=== PATIENT | male | born 1955 | race Caucasian/White ===

== ENCOUNTER 2016-10-06 12:16 | Outpatient (CLI) | payer BC, OTHER | END 2016-10-06 12:17 | disposition home or self-care (01) | DX: E78.00 Pure hypercholesterolemia, unspecified (principal) ==

== ENCOUNTER 2018-03-17 07:35 | Outpatient (CLI) | payer OTHER ==
[2018-03-17 10:38] LABS: BILIRUBIN,URINE NEGATIVE (NEGATIVE); GLUCOSE, URINE (UA) NEGATIVE (NEGATIVE); KETONES,URINE (UA) NEGATIVE (NEGATIVE); LEUKOCYTE ESTERASE, URINE TRACE (NEGATIVE); NITRITE,URINE POSITIVE (NEGATIVE); OCCULT BLOOD,URINE TRACE-LYSE (NEGATIVE); PH,URINE 7.5 PH (5.0-7.5); PROTEIN,URINE NEGATIVE (NEGATIVE); UROBILINOGEN,URINE 0.2 (NORMAL) E.U./dL (NORMAL)
[2018-03-17 10:39] LABS: CLARITY,URINE CLEAR (CLEAR)
[2018-03-17 10:54] LABS: ALBUMIN 3.8 g/dL (3.2-5.5); ALBUMIN/GLOBULIN RATIO 1.2 (1.0-2.2); ALKALINE PHOSPHATASE 55 IU/L (42-121); ALT ALANINE AMINOTRANSFERASE 24 IU/L (10-60); AST ASPARTATE AMINOTRANSFERASE 29 IU/L (10-42); BILIRUBIN,TOTAL 1.2 mg/dL (0.2-1.0); BUN - BLOOD UREA NITROGEN 12 mg/dL (6-20); CALCIUM 8.9 mg/dL (8.5-10.3); CARBON DIOXIDE - CO2 28 mmol/L (21-32); CHLORIDE 100 mmol/L (101-111); CHOL/HDL RATIO 3.4 (<5.0); CHOLESTEROL 171 mg/dL; GFR - MDRD 75 (>89); GLUCOSE 100 mg/dL (70-100); HDL CHOLESTEROL 51 mg/dL; LDL CHOLESTEROL,CALCULATED 106 mg/dL; LDL/HDL RATIO 2.1 (<3.6); SODIUM 133 mmol/L (135-145); TOTAL PROTEIN 7.1 g/dL (6.7-8.2); VLDL CHOLESTEROL 14 mg/dL
[2018-03-17 10:55] LABS: BACTERIA,URINE None Seen /HPF (None Seen); RBC,URINE 0-5 /HPF (0-5); SQUAMOUS EPITHELIAL CELL,UR NONE SEEN (<= Few)
== END 2018-03-17 07:36 | disposition home or self-care (01) ==
LOC: LAB.F 07:35
PROVIDERS: ATTEND Family Medicine
DX: E78.00 Pure hypercholesterolemia, unspecified (principal); Z12.5 Encounter for screening for malignant neoplasm of prostate; Z00.00 Encounter for general adult medical examination without abnormal findings; I10 Essential (primary) hypertension
CPT/HCPCS: 36415; 80053; 80061; 81001; 83721; 84153; 87086

== ENCOUNTER 2019-05-10 07:18 | Outpatient (CLI) | payer MEDICARE ==
--- NOTE | 2019-05-11 06:43 | Ultrasound Report ---
Reason: CARDIOVASCULAR DISORDER Procedure Date: 05/10/2019 Accession Number: [id number] / [id number] Procedure: US - Aorta Screening CPT Code: FULL RESULT: EXAM: AORTIC DOPPLER ULTRASOUND EXAM DATE: 05/10/2019 08:03 AM. CLINICAL HISTORY: Cardiovascular disorder. COMPARISON: None. TECHNIQUE: Real-time sonographic imaging of retroperitoneal vascular structures, including color-flow, Doppler flow and spectral analysis was performed by the lithographic retoucher apprentice. Multiple customer assistance representative static images were saved for review. FINDINGS: Aorta: The abdominal aorta was adequately visualized. No evidence for abdominal aortic aneurysm. Aorta: Proximal: Sagittal AP 2.5 x 2.7 cm. Mid: Transverse 1.9 x 2.1 cm. Distal: Transverse 1.5 x 1.7 cm. Caliber: WNL: Yes. Plaque visualized: Yes. Iliacs: Right Iliac: Transverse 1.2 x 1.1 cm. Left Iliac: Transverse 1.0 x 1.1 cm. Iliac Vessels: The visualized proximal common iliac arteries are normal in caliber. Other: None. IMPRESSION: No abdominal aortic aneurysm. RADIA
== END 2019-05-10 07:19 | disposition home or self-care (01) ==
LOC: DI 07:18
PROVIDERS: ATTEND Internal Medicine
DX: Z13.6 Encounter for screening for cardiovascular disorders (principal)
CPT/HCPCS: 76706

== ENCOUNTER 2019-10-03 06:56 | Outpatient (CLI) | payer MEDICARE | END 2019-10-03 06:57 | disposition critical access hospital (66) | LOC: EMS 06:56 | PROVIDERS: ATTEND Surgery | DX: K92.1 Melena (principal); R19.7 Diarrhea, unspecified | CPT/HCPCS: A0425; A0427 ==

== ENCOUNTER 2019-10-03 07:19 | Inpatient (IN) | payer MEDICARE ==
--- NOTE | 2019-10-03 07:28 | ED Physician Documentation ---
PD HPI GI BLEED - Stated complaint Stated Complaint: GI BLEED - Chief complaint Chief Complaint: Abd Pain - History obtained from History obtained from: Patient - History of Present Illness Timing - onset: Last night (had noted some red blood in toilet after BM 3 days ago, but then normal formed stool without blood the last 2 days. Overnight, had cramping lower abd pain followed by loose daksha blood. This occurred several times (6 times per patient) with red blood and clots each time. No persistent pain. No fever. Feeling weak and lightheaded so called EMS. They found him to be orthostatic/low BP.) Timing - details: Abrupt onset, Still present Associated symptoms: BRBPR, Abdominal pain (intermittent cramping), Dizzy. No: Vomiting, Black/tarry stool, Constipation, Loss of appetite, Weight loss Contributing factors: Aspirin use (baby ASA daily). No: Bad food, Recent antibiotics, NSAID use Similar symptoms before: Has not had sx before Review of Systems Constitutional: denies: Fever, Chills, Myalgias Nose: denies: Rhinorrhea / runny nose, Congestion Throat: denies: Sore throat Respiratory: denies: Cough GI: reports: Bloody / black stool. denies: Abdominal Swelling, Nausea, Vomiting, Constipation, Diarrhea : denies: Dysuria, Frequency Neurologic: reports: Generalized weakness. denies: Focal weakness, Numbness Endocrine: denies: Weight loss, Easy bruising / bleeding Immunocompromised: denies: Immunocompromised PD PAST MEDICAL HISTORY - Past Medical History Cardiovascular: Hypertension Respiratory: None Endocrine/Autoimmune: None GI: None : Benign prostate hypertrophy Psych: None Musculoskeletal: None Derm: None - Past Surgical History Cardiovascular: Angioplasty - Present Medications Home Medications: Ambulatory Orders Medication Instructions Recorded Confirmed Aspirin [Aspir 81] 81 mg PO DAILY 09/03/14 09/03/14 Lisinopril 20 mg PO DAILY 09/03/14 09/03/14 Tamsulosin [Flomax] 0.4 mg PO DAILY 09/03/14 09/03/14 - Allergies Allergies/Adverse Reactions: Allergies Allergy/AdvReac Type Severity Reaction Status Date / Time No Known Drug Allergies Allergy Verified 10/03/19 07:26 PD ED PE NORMAL - Vitals Vital signs reviewed: Yes - General General: Alert and oriented X 3, No acute distress (somewhat pale), Well developed/nourished - HEENT HEENT: Pharynx benign - Neck Neck: Supple, no meningeal sign, No adenopathy - Cardiac Cardiac: RRR, No murmur - Respiratory Respiratory: No respiratory distress, Clear bilaterally - Abdomen Abdomen: Soft, Non tender, Non distended. No: Normal bowel sounds (slightly hyperactive) - Male Male : Deferred - Rectal Rectal: Other (No hemorrhoids nor masses at the rectum nor on digital exam. There is red blood with clots in the vault.) - Derm Derm: Warm and dry. No: Normal color - Extremities Extremities: No edema, No calf tenderness / cord - Neuro Neuro: Alert and oriented X 3, No motor deficit, Normal speech Results - Vitals Vitals: Vital Signs - 24 hr 10/03/19 10/03/19 10/03/19 07:21 07:40 09:46 Temperature 36.4 C L Heart Rate 78 78 71 Respiratory 20 17 15 Rate Blood Pressure 114/53 L 111/76 119/84 H O2 Saturation 100 100 100 Oxygen O2 Source Room air - Labs Labs: Laboratory Tests 10/03/19 10/03/19 10/03/19 07:55 07:55 07:55 WBC 13.2 H RBC 3.95 L Hgb 12.2 L Hct 36.5 L MCV 92.4 MCH 30.9 MCHC 33.4 RDW 12.3 Plt Count 197 MPV 10.3 Neut # (Auto) 11.8 H Lymph # (Auto) 0.8 L Burleson # (Auto) 0.5 Eos # (Auto) 0.0 Baso # (Auto) 0.1 Absolute Nucleated RBC 0.00 Nucleated RBC % 0.0 Sodium 135 Potassium 3.8 Chloride 103 Carbon Dioxide 25 Anion Gap 7.0 BUN 16 Creatinine 0.9 Estimated GFR (MDRD) 84 L Glucose 142 H Calcium 8.0 L Magnesium 1.8 Total Bilirubin 0.9 AST 27 ALT 20 Alkaline Phosphatase 43 Total Protein 5.7 L Albumin 3.4 Globulin 2.3 Albumin/Globulin Ratio 1.5 Lipase 29 Blood Type O POSITIVE Blood Type Recheck Antibody Screen NEGATIVE 10/03/19 09:02 WBC RBC Hgb Hct MCV MCH MCHC RDW Plt Count MPV Neut # (Auto) Lymph # (Auto) Burleson # (Auto) Eos # (Auto) Baso # (Auto) Absolute Nucleated RBC Nucleated RBC % Sodium Potassium Chloride Carbon Dioxide Anion Gap BUN Creatinine Estimated GFR (MDRD) Glucose Calcium Magnesium Total Bilirubin AST ALT Alkaline Phosphatase Total Protein Albumin Globulin Albumin/Globulin Ratio Lipase Blood Type Blood Type Recheck O POSITIVE Antibody Screen - Rads (name of study) abd CT Radiology: Prelim report reviewed (acute diverticulitis), See rad report PD MEDICAL DECISION MAKING - ED course Complexity details: reviewed results, considered differential, d/w patient Departure - Departure Disposition: 66 [facility] DC/Xfer Clinical Impression: Acute diverticulitis, Lower GI bleed, Transient hypotension Condition: Stable Record reviewed to determine appropriate education?: Yes
[2019-10-03] MEDS ORDERED: SODIUM CHLORIDE 0.9% 1,000 ML IV ONE ×2 (07:46→07:47)
[2019-10-03] MEDS ORDERED: FAMOTIDINE 20 MG/2 ML VIAL IVP STA (07:46)
[2019-10-03] MEDS ORDERED: IOVERSOL 320 100 ML VIAL IVP ONE ×2 (08:01→09:44)
[2019-10-03 08:18] LABS: BASOPHILS # (AUTO) 0.1 10^3/uL (0.0-0.1); BASOPHILS % (AUTO) 0.4 %; EOSINOPHILS % (AUTO) 0.1 %; HGB - HEMOGLOBIN 12.2 g/dL (14.0-18.0); LYMPHOCYTES # (AUTO) 0.8 10^3/uL (1.5-3.5); LYMPHOCYTES % (AUTO) 5.8 %; MEAN CORPUSCULAR HEMOGLOBIN 30.9 pg (27.0-31.0); MEAN CORPUSCULAR HGB CONC 33.4 g/dL (32.0-36.0); MEAN CORPUSCULAR VOLUME 92.4 fL (80.0-94.0); MEAN PLATELET VOLUME 10.3 fL (7.4-11.4); MONOCYTES # (AUTO) 0.5 10^3/uL (0.0-1.0); MONOCYTES % (AUTO) 3.6 %; NEUTROPHILS # (AUTO) 11.8 10^3/uL (1.5-6.6); NEUTROPHILS % (AUTO) 89.3 %; PLT - PLATELET COUNT 197 10^3/uL (130-450); RED BLOOD COUNT 3.95 10^6/uL (4.70-6.10); RED CELL DISTRIBUTION WIDTH 12.3 % (12.0-15.0); WHITE BLOOD COUNT 13.2 x10^3/uL (4.8-10.8)
[2019-10-03 08:25] LABS: ALBUMIN 3.4 g/dL (3.2-5.5); ALBUMIN/GLOBULIN RATIO 1.5 (1.0-2.2); BILIRUBIN,TOTAL 0.9 mg/dL (0.2-1.0); CREATININE 0.9 mg/dL (0.6-1.2); MAGNESIUM 1.8 mg/dL (1.7-2.8); TOTAL PROTEIN 5.7 g/dL (6.7-8.2)
--- NOTE | 2019-10-03 09:41 | CT Report ---
Reason: lower abd pain; GI bleeding Procedure Date: 10/03/2019 Accession Number: [id number] / [id number] Procedure: CT - Abdomen/Pelvis W CPT Code: Final Report FULL RESULT: EXAM: CT ABDOMEN AND PELVIS EXAM DATE: 10/03/2019 09:01 AM. CLINICAL HISTORY: Lower abdominal pain; GI bleeding. COMPARISONS: AORTA SCREENING 05/10/2019 7:25 AM. TECHNIQUE: Routine helical CT imaging was performed through the abdomen and pelvis. IV contrast: OPTI 320 100 mL. Enteric contrast: No. Reconstructions: Coronal and sagittal. In accordance with CT protocol optimization, one or more of the following dose reduction techniques were utilized for this exam: automated exposure control, adjustment of mA and/or KV based on patient size, or use of iterative reconstructive technique. FINDINGS: Lung Bases: Bases are clear. Coronary artery disease is noted. No cardiac enlargement. Liver: Mildly fatty liver. No mass or intrahepatic bile duct dilation. No liver enlargement. Portal vein is patent. Gallbladder/Bile Ducts: Unremarkable. Spleen: Normal. Pancreas: Normal. Adrenal Glands: Normal. Kidneys: No stones or hydronephrosis. Mild to moderate bilateral perinephric stranding. Exophytic 1.4 cm intermediate density cystic lesion in the posterior mid right kidney measuring 31 HU on image 4, 29. No obstructing ureteral stone. Peritoneal Cavity/Bowel: No pneumoperitoneum, mass or adenopathy. No collection is noted. There is a long segment of inflamed mid and proximal sigmoid and distal left colon demonstrating mild wall thickening and mild adjacent fat inflammatory changes. No discrete mass, free air, or loculated fluid collection seen. Remaining stomach, small bowel and large bowel are normal. The appendix is well visualized and normal. Pelvic Organs: Punctate calcification noted in the moderately enlarged prostate gland. Normal-sized seminal vesicles. Otherwise, the bladder and visualized pelvic organs are within normal limits. No collections, ascites or adenopathy. Vasculature: Diffuse atheromatous plaques are present in the abdominal aorta and branch vessels. No aneurysm. Normal IVC. Bones: No significant abnormality. Other: Previous vasectomy noted. IMPRESSION: 1. Inflamed proximal and mid sigmoid and distal left colon compatible with colitis/diverticulitis. 2. No complications such as obstruction, perforation or abscess. 3. Mildly fatty liver. No liver mass or intrahepatic bile duct dilation. 4. Indeterminate exophytic intermediate density mid right renal cystic structure. This could represent a proteinaceous or hemorrhagic cyst. Recommend further evaluation on an outpatient basis with ultrasound or multiphase CT/MRI in order to exclude a solid mass. RADIA
[2019-10-03] MEDS ORDERED: cefTRIAXone 1 GM VIAL IVP STA (10:04)
[2019-10-03] MEDS ORDERED: metroNIDAZOLE 500 MG/100 ML 500 MG/100 ML BAG IV ONE (10:05)
[2019-10-03] MEDS ORDERED: SODIUM CHLORIDE FLUSH 0.9% 10 ML SYRINGE IVP PRN (10:44)
[2019-10-03] MEDS ORDERED: ACETAMINOPHEN 325 MG TABLET PO PRN (10:44)
[2019-10-03] MEDS ORDERED: ONDANSETRON 4 MG/2 ML VIAL IVP PRN (10:44)
[2019-10-03] MEDS ORDERED: oxyCODONE 5 MG TABLET PO PRN (10:44)
[2019-10-03] MEDS ORDERED: MORPHINE 2 MG/ML CARPUJECT IVP PRN (10:44)
--- NOTE | 2019-10-03 10:59 | HISTORY & PHYSICAL EXAMINATION ---
Chief Complaint - Chief Complaint Chief Complaint: abdominal pain and GI bleed History of Present Illness - History of Present Illness HPI Comment/Other: Mr. Bertrand is a 64-yrs-old male with a PMH significant for HTN, BPH, who present ER complain of abdominal cramp, nausea and GI bleed. pt report this morning about 2 am he had significant amount of bright bloody bowel movement with abdominal cramp, nausea without vomiting. Then he had another bloody loose bowel movement around 7 am but blood was much reduced. When I assessed pt, his abdominal pain was resolved. He report he had colonoscopy on 2013 which was unremarkable. he declined to have another colonoscopy at this time hospital. pt denies chest pain, fever, chill, shortness of breath, headache, vision change, focal neurological defitics. His HGB is 12.[address] of abdomen reveals i nflamed proximal and mid sigmoid and distal left colon compatible with colitis/diverticulitis without complication. Route lab test reveals elevated WBC otherwise it is unremarkable. pt is afebrile, and hemodynamic stable. pt is admitted for above medical reason. History - Past Medical History Cardiovascular: reports: Hypertension Respiratory: reports: None Endocrine/Autoimmune: reports: None GI: reports: None : reports: Benign prostate hypertrophy Psych: reports: None Musculoskeletal: reports: None Derm: reports: None MRSA Hx?: No - Past Surgical History Cardiovascular: reports: Angioplasty - Family & Social History Family History: Mother: , CAD, Father: , Cancer Family History Comment/Other: pt report his father from lung cancer and heavy smoker, her mother from heart problem. he has one child and health. Social History Notes: he is living [place] with his . he denies smoking, alcohol and drug issue. - POLST Patient has POLST: No Meds/Allgy - Home Medications Home Medications: Ambulatory Orders Medication Instructions Recorded Confirmed Aspirin [Aspir 81] 81 mg PO DAILY 09/03/14 09/03/14 Tamsulosin [Flomax] 0.4 mg PO DAILY 09/03/14 10/03/19 lisinopriL [Lisinopril] 10 mg PO DAILY 10/03/19 10/03/19 - Allergies Allergies/Adverse Reactions: Allergies Allergy/AdvReac Type Severity Reaction Status Date / Time No Known Drug Allergies Allergy Verified 10/03/19 07:26 Review of Systems - Constitutional Constitutional: denies: Fatigue, Fever, Chills, Malaise, Weakness, Poor appetite, Diaphoresis, Night sweats - Eyes Eyes: denies: Pain, Irritation, Amaurosis, Blurred vision, Spots in vision, Field loss, Vision loss, Dipolpia - Ears, Nose & Throat Ears, Nose & Throat: denies: Ear pain, Hearing loss, Hearing aids, Tinnitus, Nasal pain, Nasal discharge, Nosebleeds, Nasal obstruction, Dentures, Sore throat, Mouth lesions, Bleeding gums - Cardiovascular Cariovascular: denies: Irregular heart rate, Palpitations, Chest pain, Edema, Lightheadedness, Syncope, Exertional dyspnea, Decr. exercise tolerance - Respiratory Respiratory: denies: Cough, Sputum production, Wheezing, Snoring, Hemoptysis, Orthopnea, SOB at rest, Apnea, Stridor - Gastrointestinal Gastrointestinal: reports: Abdominal pain, Rectal bleeding, Bloody stools, Nausea. denies: Abdominal distention, Constipation, Diarrhea, Change in bowel habits, Black stools, Vomiting, Bile emesis, Ivan blood emesis, Coffee grounds emesis, Reflux/heartburn, Bloating, Poor appetite - Genitourinary Genitourinary: denies: Dysuria, Frequency, Urgency, Hematuria, Incontinence, Flank pain, Nocturia, Urethral discharge - Musculoskeletal Musculoskeletal: denies: Muscle pain, Back pain, Muscle aches, Stiffness, Limited range of motion, Muscle weakness, Gout, Joint pain - Integumentary Integumentary: denies: Rash, Pruritis, Lesions, Dryness, Lumps, Acne, Pigment changes, Nail changes - Neurological Neurological: denies: General weakness, Focal weakness, Headache, Dizziness, Numbness, Memory problems, Pre-existing deficit, Abnormal gait, Seizures, Incoordination, Slurred speech - Psychiatric Psychiatric: denies: Depression, Anxiety, Suicidal, Delusions, Hallucinations, Homicidal - Endocrine Endocrine: denies: Polyuria, Polydypsia, Polyphagia, Intolerance to cold, Intolerance to heat - Hematologic/Lymphatic Hematologic/Lymphatic: denies: Anemia, Bruising, Petechiae, Blood clots, Lymp hadenopathy, Bleeding tendencies, Recurrent infections Exam - Vital Signs Reviewed Vital Signs: Yes Vital Signs: Vital Signs x48h Temp Pulse Resp BP Pulse Ox 10/03/19 09:46 71 15 119/84 H 100 10/03/19 07:40 78 17 111/76 100 10/03/19 07:21 36.4 C L 78 20 114/53 L 100 - Physical Exam General Appearance: positive: No acute distress, Alert. negative: Lethargic Eyes Bilateral: positive: Normal inspection, PERRL, EOMI, No lid inflammation ENT: positive: ENT inspection nml, Pharynx nml, No signs of dehydration. negative: Purulent nasal drainage, Oral lesions Neck: positive: Nml inspection, Thyroid nml, No JVD, Trachea midline. negative: Thyromegaly, Lymphadenopathy (R), Lymphadenopathy (L), Stiff neck, Tracheal deviation Respiratory: positive: Chest non-tender, No respiratory distress, Breath sounds nml. negative: Wheezes, Rales, Rhonchi Cardiovascular: positive: Regular rate & rhythm, No murmur, No gallop. negative: Irregularly irregular, Extrasystoles, Tachycardia, Bradycardia, JVD present, Systolic murmur, Diastolic murmur Peripheral Pulses: positive: 2+ Abdomen: positive: Non-tender, No organomegaly, Nml bowel sounds, No distention. negative: Tenderness, Guarding, Rebound Back: positive: Nml inspection. negative: CVA tenderness (R), CVA tenderness (L) Skin: positive: Color nml, No rash, Warm, Dry. negative: Cyanosis, Diaphoresis, Pallor Extremities: positive: Non-tender, Full ROM, Nml appearance. negative: Calf tenderness, Bridgette's sign/cords Neurologic/Psychiatric: positive: Oriented x3, Motor nml, Sensation nml, Mood/affect nml. negative: Weakness, Sensory loss, Facial droop, Slurred/abnml speech, Depressed mood/affect Sepsis Event Note (H) - Evaluation Current Stage of Sepsis: Ruled out Conclusion/Plan - Problem List (1) Lower GI bleed Conclusion/Plan: pt has no more bleed now. pt report he had bright bloody stool. HGB is 12. 2. CT reveals colitis/diverticulitis in distal left colon, which is likely the bleeding resource. pt had colonoscopy about 5 yrs ago which was unremarkable. pt declined to have colonoscopy at this time. treat antibiotic for colitis/diverticulitis H&H monitor and occult test stool IVF of NS, vital monitor (2) Acute diverticulitis Conclusion/Plan: pt's abdominal pain is already better, pt had good bowel sound. pt report nausea but denies vomiting. CT of abdomen did not reveals other complications. plan: antibiotics Zosyn for colitis/diverticulitis clear dietary, advanced as tolerated. IVF of NS, lab and vital monitor (3) HTN (hypertension) Conclusion/Plan: stable, resume home Lisinopril, vital monitor (4) BPH (benign prostatic hyperplasia) Conclusion/Plan: pt has hx of BPH, resume home Flomax. (5) Full code status Conclusion/Plan: pt request full code - Lab Results Fish Bones: 10/03/19 07:55 10/03/19 07:55 Core Measures - Anticipated LOS I expect patient to be DC'd or transferred within 96 hours.: Yes - DVT/VTE - Prophylaxis VTE/DVT Device ordered at admit?: Yes VTE/DVT Prophylaxis med ordered at admit?: Yes
[2019-10-03] MEDS: SODIUM CHLORIDE 0.9% 1,000 ML IV SCH (12:44)
[2019-10-03] MEDS: PANTOPRAZOLE 40 MG VIAL IVP SCH (12:45)
[2019-10-03] MEDS ORDERED: PIPERACILLIN/TAZOBACTAM 3.375 GM in SODIUM CHLORIDE 0.9% MINIBAG 100 ML IV ONE (13:00)
[2019-10-03] MEDS: PIPERACILLIN/TAZOBACTAM 3.375 GM in SODIUM CHLORIDE 0.9% MINIBAG 100 ML IV SCH (16:22)
[2019-10-03 18:37] LABS: HGB - HEMOGLOBIN 11.8 g/dL (14.0-18.0)
[2019-10-03] MEDS: SODIUM CHLORIDE FLUSH 0.9% 10 ML SYRINGE IVP SCH (19:13)
[2019-10-04] MEDS: PIPERACILLIN/TAZOBACTAM 3.375 GM in SODIUM CHLORIDE 0.9% MINIBAG 100 ML IV SCH ×2 (00:50→08:45)
[2019-10-04] MEDS: SODIUM CHLORIDE FLUSH 0.9% 10 ML SYRINGE IVP SCH ×2 (02:06→08:58)
[2019-10-04] MEDS: SODIUM CHLORIDE 0.9% 1,000 ML IV SCH (02:39)
[2019-10-04 06:02] LABS: BASOPHILS % (AUTO) 0.4 %; EOSINOPHILS % (AUTO) 0.7 %; HGB - HEMOGLOBIN 10.5 g/dL (14.0-18.0); LYMPHOCYTES # (AUTO) 1.3 10^3/uL (1.5-3.5); LYMPHOCYTES % (AUTO) 22.4 %; MEAN CORPUSCULAR HEMOGLOBIN 30.9 pg (27.0-31.0); MEAN CORPUSCULAR HGB CONC 33.9 g/dL (32.0-36.0); MEAN CORPUSCULAR VOLUME 91.2 fL (80.0-94.0); MEAN PLATELET VOLUME 10.1 fL (7.4-11.4); MONOCYTES # (AUTO) 0.5 10^3/uL (0.0-1.0); MONOCYTES % (AUTO) 8.4 %; NEUTROPHILS # (AUTO) 3.8 10^3/uL (1.5-6.6); NEUTROPHILS % (AUTO) 67.7 %; PLT - PLATELET COUNT 246 10^3/uL (130-450); RED CELL DISTRIBUTION WIDTH 12.6 % (12.0-15.0); WHITE BLOOD COUNT 5.6 x10^3/uL (4.8-10.8)
[2019-10-04 06:08] LABS: CALCIUM 8.3 mg/dL (8.5-10.3); CREATININE 0.9 mg/dL (0.6-1.2)
[2019-10-04] MEDS: PANTOPRAZOLE 40 MG VIAL IVP SCH (06:10)
[2019-10-04] MEDS ORDERED: TAMSULOSIN 0.4 MG CAPSULE PO SCH (09:00)
[2019-10-04] MEDS ORDERED: lisinopriL 5 MG TABLET PO SCH (09:00)
[2019-10-04 10:56] LABS: HGB - HEMOGLOBIN 12.1 g/dL (14.0-18.0)
[2019-10-04 12:40] VITALS: BP 123/69
--- NOTE | 2019-10-04 12:58 | Discharge Plan ---
Discharge Plan Problem Reviewed?: Yes Disposition: Home, Self Care Condition: Stable Prescriptions: Ciprofloxacin HCl [Cipro] 500 mg PO BID #16 tablet metroNIDAZOLE [Flagyl] 250 mg PO Q8H #24 tablet Diet: Regular Activity Restrictions: Activity as Tolerated Shower Restrictions: No (fall precaution) Instruction Topics: Diverticulosis Diverticulitis, Ciprofloxacin tablets, Metronidazole tablets or capsules Health Concerns: diverticulitis/colitis, GI bleed Plan of Treatment: your HGB is running up and stable. you were found to have colitis/diverticulitis. After treatment, you have no more abdominal cramp or pain, no nausea or vomiting, and you tolerate the regular diet. you are prescribed Cipro and Flagyl to finish the treatment course. Recommend you followup your PCP, and GI as out-pt Care Goals: stabilization and improvement of your medical conditions Assessment: discussed with you for the care plan, you understood and agreed Additional Instructions or Follow Up instructions: you may followup your PCP in one-two weeks, followup senior administrative assistant as out- pt. should your symptoms return or worsen, you may present ER or call 911 for help. No Smoking: If you smoke, Please STOP! Call for help. Follow-up with: Mauri Elizabeth MD [Primary Care Provider] -
--- NOTE | 2019-10-04 13:17 | DISCHARGE SUMMARY ---
Discharge Summary Admit Date: 10/03/19 Discharge Date: 10/04/19 Discharging Provider: Yusuf Aguilera Primary Care Provider: Mauri Saravia Condition at Discharge: Stable Discharge Disposition: 01 Home, Self Care Discharge Facility Name: home - DIAGNOSES Admission Diagnoses: (1) Lower GI bleed (2) Acute diverticulitis (3) HTN (hypertension) (4) BPH (benign prostatic hyperplasia) Discharge Diagnoses with Status of Each Condition: (1) Lower GI bleed pt report he has no bowel movement in hospital, no GI bleed. pt's HGB is stable. pt has no more abdominal pain. he tolerate regular, no nausea or vomiting. pt is advised to followup PCP, and GI as out-pt for continuing management, to have out-pt colonoscopy. (2) Acute diverticulitis stable. pt is prescribed Cipro and Flagyl for d/c. pt has no more abdominal cramp/pain, no nausea or vomiting, pt tolerated the regular diet. (3) HTN (hypertension) stable (4) BPH (benign prostatic hyperplasia) stable - HPI History of Present Illness: Mr. Bertrand is a 64-yrs-old male with a PMH significant for HTN, BPH, who present ER complain of abdominal cramp, nausea and GI bleed. pt report this morning about 2 am he had significant amount of bright bloody bowel movement with abdominal cramp, nausea without vomiting. Then he had another bloody loose bowel movement around 7 am but blood was much reduced. When I assessed pt, his abdominal pain was resolved. He report he had colonoscopy on 2013 which was unremarkable. he declined to have another colonoscopy at this time hospital. pt denies chest pain, fever, chill, shortness of breath, headache, vision change, focal neurological defitics. His HGB is 12.[address] of abdomen reveals inflamed proximal and mid sigmoid and distal left colon compatible with colitis/diverticulitis without complication. Route lab test reveals elevated WBC otherwise it is unremarkable. pt is afebrile, and hemodynamic stable. pt is admitted for above medical reason. - HOSPITAL COURSE Hospital Course: pt was admitted for abdominal cramp, and GI bleed. after treated with an tibiotics and bowel rest, pt's symptoms resolved. pt's HGB is stable. pt has no bowel movement in hospital, no more GI bleed. pt is advised to followup PCP, and GI as out-pt for continuing management, to have out-pt colonoscopy. the detail hospital course is as the below. (1) Lower GI bleed pt report he has no bowel movement in hospital, no GI bleed. pt's HGB is stable. pt has no more abdominal pain. he tolerate regular, no nausea or vomiting. pt is advised to followup PCP, and GI as out-pt for continuing management, to have out-pt colonoscopy. (2) Acute diverticulitis stable. pt is prescribed Cipro and Flagyl for d/c. pt has no more abdominal cramp/pain, no nausea or vomiting, pt tolerated the regular diet. (3) HTN (hypertension) stable (4) BPH (benign prostatic hyperplasia) stable - ALLERGIES Allergies/Adverse Reactions: Allergies Allergy/AdvReac Type Severity Reaction Status Date / Time No Known Drug Allergies Allergy Verified 10/03/19 07:26 - MEDICATIONS Home Medications: Ambulatory Orders Medication Instructions Recorded Confirmed Tamsulosin [Flomax] 0.4 mg PO DAILY 09/03/14 10/03/19 lisinopriL [Lisinopril] 10 mg PO DAILY 10/03/19 10/03/19 Aspirin [Aspirin EC] 81 mg PO DAILY 10/04/19 10/04/19 Ciprofloxacin HCl [Cipro] 500 mg PO BID #16 tablet 10/04/19 metroNIDAZOLE [Flagyl] 250 mg PO Q8H #24 tablet 10/04/19 - PHYSICAL EXAM AT DISCHARGE General Appearance: positive: No acute distress, Alert. negative: Lethargic Eyes Bilateral: positive: Normal inspection, PERRL, EOMI, No lid inflammation ENT: positive: ENT inspection nml, Pharynx nml, No signs of dehydration. neg ative: Purulent nasal drainage Neck: positive: Nml inspection, Thyroid nml, No JVD, Trachea midline. negative: Thyromegaly, Lymphadenopathy (R), Lymphadenopathy (L), Stiff neck, Tracheal deviation Respiratory: positive: Chest non-tender, No respiratory distress, Breath sounds nml. negative: Wheezes, Rales, Rhonchi Cardiovascular: positive: Regular rate & rhythm, No murmur, No gallop. negative: Irregularly irregular, Extrasystoles, Tachycardia, Bradycardia, JVD present, Systolic murmur, Diastolic murmur Peripheral Pulses: positive: 2+ Abdomen: positive: Non-tender, No organomegaly, Nml bowel sounds, No distention. negative: Tenderness, Guarding, Rebound Back: positive: Nml inspection. negative: CVA tenderness (R), CVA tenderness (L) Skin: positive: Color nml, No rash, Warm, Dry. negative: Cyanosis, Diaphoresis, Pallor Extremities: positive: Non-tender, Full ROM, Nml appearance. negative: Calf tenderness, Bridgette's sign/cords Neurologic/Psychiatric: positive: Motor nml, Sensation nml, Mood/affect nml. negative: Weakness, Sensory loss, Facial droop, Slurred/abnml speech, Depressed mood/affect - LABS Result Diagrams: 10/04/19 10:41 10/04/19 05:25 - SEPSIS Current Stage of Sepsis: Ruled out - FOLLOW UP Follow Up: your HGB is running up and stable. you were found to have colitis/diverticulitis. After treatment, you have no more abdominal cramp or pain, no nausea or vomiting, and you tolerate the regular diet. you are prescribed Cipro and Flagyl to finish the treatment course. Recommend you followup your PCP, and GI as out-pt. you may followup your PCP in one-two weeks, followup correction officer head as out- pt. should your symptoms return or worsen, you may present ER or call 911 for help. - TIME SPENT Time Spent in Discharge (Minutes): 40
--- NOTE | 2019-10-04 13:42 | PHARMACY PROGRESS NOTE ---
- Best Possible Medication History Admit Date and Time: 10/03/19 1044 Processed by: Pharmacy (PING Kirk, secondary Barbra Ramos) Medication History completed: Yes Patient Interview: Completed Secondary Source(s): Insurance records As the person ultimately responsible for medication therapy, providers are able to order a medication from an existing home medication list in [facility] via the "Reconcile Routine" prior to Confirmation of that medication by mining support worker. Such practice is discouraged except when the physician, in their clinical judgment, deems that a medical need exists for a medication without regard to previous use.
== END 2019-10-04 14:09 | disposition home or self-care (01) | DRG 379 ==
LOC: EDUNIT# → ED 07:19 → MS2 10:44
PROVIDERS: ADMIT Nurse Practitioner Gerontology; ATTEND Nurse Practitioner Gerontology
DX: K57.33 Diverticulitis of large intestine without perforation or abscess with bleeding (principal); I95.1 Orthostatic hypotension; I10 Essential (primary) hypertension; N40.0 Benign prostatic hyperplasia without lower urinary tract symptoms; Z79.82 Long term (current) use of aspirin; Z79.899 Other long term (current) drug therapy
CPT/HCPCS: 36415; 74177; 80048; 80053; 83690; 83735; 85014; 85018; 85025; 86850; 86900; 86901; 96361; 96374; 96375; 99284; 99285; A9270; Q9967; 82272

== ENCOUNTER 2019-11-08 12:37 | Day surgery (SDC) | payer MEDICARE ==
[2019-11-08] MEDS ORDERED: LACTATED RINGERS 1,000 ML IV ONE (12:43)
[2019-11-08 16:18] VITALS: BP 114/80
== END 2019-11-08 12:38 | disposition home or self-care (01) ==
LOC: SDS 12:37
PROVIDERS: ATTEND Surgery
PROC: 0DJD8ZZ Inspection of Lower Intestinal Tract, Via Natural or Artificial Opening Endoscopic (ICD-10-PCS; principal; 2019-11-08 13:15)
DX: K57.31 Diverticulosis of large intestine without perforation or abscess with bleeding (principal); K64.8 Other hemorrhoids; I10 Essential (primary) hypertension; Z79.899 Other long term (current) drug therapy; Z80.1 Family history of malignant neoplasm of trachea, bronchus and lung; Z87.891 Personal history of nicotine dependence
CPT/HCPCS: 45378; J7120